=== PATIENT | female | born 2000 | race Caucasian/White ===

== ENCOUNTER 2024-03-27 08:51 | Emergency (ER) | payer BC, SELFPAY ==
[2024-03-27 09:04] VITALS: BP 122/72; PULSE 70; RESP 20; TEMP 37.2; O2SAT 99
--- NOTE | 2024-03-27 09:24 | ED.HA ---
HPI - Headache General Chief Complaint: Wound/Laceration Stated Complaint: HEAD INJURY/EYEBROW LACERATION Time Seen by Provider: 03/27/24 09:07 Source: patient and RN notes reviewed Mode of arrival: ambulatory Limitations: no limitations History of Present Illness HPI Narrative: Patient presents today complaining laceration to the left lateral eyebrow after she was elbowed in the head yesterday around noon while cheerleading. Denies loss of consciousness. Skin glue was applied to this area immediately. Following the injury patient developed a generalized headache with some photophobia today. Currently rates her pain 5/10 and has taken some Tylenol without relief. Denies neck pain, nausea or vomiting Related Data Home Medications Medication Instructions Recorded Confirmed No Home Medications 03/27/24 03/27/24 Allergies Allergy/AdvReac Type Severity Reaction Status Date / Time No Known Allergies Allergy Verified 03/27/24 09:24 Review of Systems Review of Systems: CONSTITUTIONAL: Denies body aches, fever, chills, or sweats. EYES: Denies visual changes, redness, or discharge. ENT: Denies rhinorrhea, congestion, sore throat, or otalgia.+ photophobia CARDIOVASCULAR: Denies chest pain, palpitations, or edema. RESPIRATORY: Denies cough or dyspnea. GASTROINTESTINAL: Denies abdominal pain, nausea, vomiting, or diarrhea. GENITOURINARY: Denies dysuria or hematuria. SKIN: Denies rash, itching. + eyebrow laceration MUSCULOSKELETAL: Denies back pain, joint pain, or myalgia. NEUROLOGIC: Denies numbness, tingling, or weakness.+ headache PSYCH: Denies depression or anxiety. PMFSH Comments At time of signature, I have reviewed and agree with nursing past medical, surgical, social and family history unless otherwise noted. Please see nursing chart for further information. There is no relevant family history pertinent to the presenting complaint Exam Narrative: GENERAL: Well-appearing, well-nourished, and in no acute distress. HEAD: Normocephalic, atraumatic. EYES: EOMI. PERRL. No nystagmus. No redness or drainage. Conjunctivae normal. ENT: Mucous membranes pink and moist. NECK: Normal AROM. Supple. No lymphadenopathy. Neck is nontender. No pain with range of motion CHEST: No respiratory distress. EXTREMITIES: Normal range of motion. No edema. Hand worm packer equal and strong. Dorsiflexion and plantar flexion equal and strong against resistance. SKIN: Warm, dry, no rash. Capillary refill normal. Normal skin turgor. NEURO: No focal deficits. Alert and oriented x3. Gait steady. PSYCH: Normal affect. No signs of depression or anxiety. Course Course Level of Care: Express Care Visit Vital Signs Vital signs: Vital Signs Temperature 98.9 F 03/27/24 09:04 Pulse Rate 70 03/27/24 09:04 Respiratory Rate 20 03/27/24 09:04 Blood Pressure 122/72 03/27/24 09:04 Pulse Oximetry 99 03/27/24 09:04 Oxygen Delivery Room Air 03/27/24 09:04 Temperature 98.9 F 03/27/24 09:04 Pulse Rate 70 03/27/24 09:04 Respiratory Rate 20 03/27/24 09:04 Blood Pressure 122/72 03/27/24 09:04 Pulse Oximetry 99 03/27/24 09:04 Oxygen Delivery Room Air 03/27/24 09:04 Reviewed MDM - Headache MDM Narrative Medical decision making narrative: Patient's laceration was repaired with skin glue. No need to revise this repair at this time. No signs of infection. Patient is having some mild concussion symptoms. Discussed rest and care going forward. Differential Diagnosis Differential diagnosis: Likely tension headache, postconcussion syndrome and other (Eyebrow laceration) Critical Care Time Critical Care Time Critical Care Time: No Discharge Plan Discharge Clinical Impression: Post-concussion syndrome Laceration of eyebrow, left Qualifiers: Encounter type: sequela Qualified Code(s): S01.112S - Laceration without foreign body of left eyelid and periocular area, sequela Patient Disposi
== END 2024-03-27 09:32 | disposition home or self-care (01) ==
PROVIDERS: Emergency Provider Nurse Practitioner
DX: F07.81 Postconcussional syndrome (principal); S01.112A Laceration without foreign body of left eyelid and periocular area, initial encounter; W50.0XXA Accidental hit or strike by another person, initial encounter; Y93.45 Activity, cheerleading
CPT/HCPCS: 99213; G0463

== ENCOUNTER 2024-04-12 12:02 | Emergency (ER) | payer BC, SELFPAY ==
--- NOTE | 2024-04-12 12:06 | ED.GENADULT ---
HPI - General Adult General Chief complaint: Upper Respiratory Infection Stated complaint: sore throat Time Seen by Provider: 04/12/24 12:06 Source: patient Mode of arrival: ambulatory Limitations: no limitations History of Present Illness HPI narrative: Old female patient presents to the [facility] with complaints of sore throat that started yesterday. Patient states she is very prone to tonsillitis and strep. Patient states she did have some chills and she noticed today that she had some white spots on the back of her tonsils. Related Data Home Medications Medication Instructions Recorded Confirmed No Home Medications 03/27/24 04/12/24 Allergies Allergy/AdvReac Type Severity Reaction Status Date / Time No Known Allergies Allergy Verified 04/12/24 12:09 Review of Systems Review of Systems: CONSTITUTIONAL: Denies fever, chills, or sweats. EYES: Denies visual changes, redness, or discharge. ENT: Denies rhinorrhea, congestion, Positive sore throat, denies otalgia. CARDIOVASCULAR: Denies chest pain, palpitations, or edema. RESPIRATORY: Denies cough or dyspnea. GASTROINTESTINAL: Denies abdominal pain, nausea, vomiting, or diarrhea. GENITOURINARY: Denies dysuria or hematuria. SKIN: Denies rash or itching. MUSCULOSKELETAL: Denies back pain, joint pain, or myalgia. NEUROLOGIC: Denies headache, numbness, or weakness. PSYCHIATRIC: Denies anxiety or depression. [facility] Past Medical History Medical History (Updated 04/12/24 @ 12:25 by KATLIN Carroll) Strep pharyngitis Tonsillitis Comments At the time of my signature I agree with nursing past medical history, surgical, social, and family history. There is no relevant family history pertinent to the presenting complaint. Exam Narrative: GENERAL: Well-appearing, well-nourished, and in no acute distress. HEAD: Normocephalic, atraumatic. EYES: PERRLA and EOMI. ENT: Nares clear, no rhinorrhea or epistaxis. Mucous membranes moist. bilateral TMs are clear no erythema or foreign bodies the canal. Posterior pharynx with erythema and 1+ tonsillar enlargement with white exudates noted. NECK: Supple. No lymphadenopathy CHEST: Clear to auscultation. No respiratory distress. HEART: Regular rate and rhythm. No murmur heard. Normal peripheral pulses. ABDOMEN: Soft, nontender, nondistended, normal active bowel sounds. EXTREMITIES: Normal range of motion. No edema. SKIN: Warm, dry, no rash. NEURO: No focal deficits. Alert and oriented x3. Course Course Level of Care: Express Care Visit Vital Signs Vital signs: Vital Signs Temperature 37.1 C 04/12/24 12:16 Pulse Rate 95 04/12/24 12:16 Respiratory Rate 16 04/12/24 12:16 Blood Pressure 150/105 H 04/12/24 12:16 Pulse Oximetry 98 04/12/24 12:16 Temperature 37.1 C 04/12/24 12:16 Pulse Rate 95 04/12/24 12:16 Respiratory Rate 16 04/12/24 12:16 Blood Pressure 150/105 H 04/12/24 12:16 Pulse Oximetry 98 04/12/24 12:16 Vital signs reviewed. Medical Decision Making MDM Narrative Medical decision making narrative: Plan of care for patient is to swab her today for strep I will reassess her once this has resulted. Differential Diagnosis Differential Diagnosis: Differential diagnosis: Viral pharyngitis, pharyngitis, group A strep, infectious mononucleosis, gonococcal pharyngitis, exudative pharyngitis, oral candidiasis. Chronic allergies, postnasal drip, GERD, abscess formation, but glottitis, retropharyngeal abscess formation, or airway obstruction. Vital Signs Vital Signs: Vital Signs Temperature 37.1 C 04/12/24 12:16 Pulse Rate 95 04/12/24 12:16 Respiratory Rate 16 04/12/24 12:16 Blood Pressure 150/105 H 04/12/24 12:16 Pulse Oximetry 98 04/12/24 12:16 Temperature 37.1 C 04/12/24 12:16 Pulse Rate 95 04/12/24 12:16 Respiratory Rate 16 04/12/24 12:16 Blood Pressure 150/105 H 04/12/24 12:16 Pulse Oximetry 98 04/12/24 12:16
[2024-04-12 12:16] VITALS: BP 150/105; PULSE 95; RESP 16; TEMP 37.1; O2SAT 98
[2024-04-12 12:24] LABS: EDSTREPNEGPOS1 Negative
== END 2024-04-12 12:40 | disposition home or self-care (01) ==
PROVIDERS: Emergency Provider Nurse Practitioner Family
DX: J03.90 Acute tonsillitis, unspecified (principal)
CPT/HCPCS: 87081; 87880; 99213; G0463

== ENCOUNTER 2024-04-13 10:08 | Emergency (ER) | payer BC, SELFPAY ==
--- NOTE | ~2024-04-13 | CT_ITS ---
CT scan of the Neck Technique: 2.5 mm axial scans were obtained through the neck after intravenous administration of 75 c c Omnipaque 350. Coronal and sagittal reconstructions of the neck were obtained. Dose reduction techn ique was used on this scan by utilizing automated exposure control and iterative reconstruction techn ique. The dose-length product (DLP) was 517.60 mGy-cm. Clinical History: Dysphagia, tonsillar enlargement Findings: There is bilateral stable 2 cervical lymphadenopathy. No other mass lesion evident. Parapharyngeal sp aces appear normal bilaterally. There is enlargement and heterogeneous appearance of bilateral palati ne tonsils, compatible tonsillitis/phlegmonous change. No definite discrete abscess evident. The paro tid and submandibular glands appear normal. The pharyngeal mucosal spaces appear normal. No soft tissue masses are seen in the neck. The thyroid gland appears normal. Images of the lung apices reveal no abnormalities. Impression: Bilateral palatine tonsillitis. No definite discrete abscess seen. Bilateral cervical lymphadenopathy, most likely reactive. Reviewed, dictated and finalized at [facility]. Impression: Bilateral palatine tonsillitis. No definite discrete abscess seen. Bilateral cervical lymphadenopathy, most likely reactive.
[2024-04-13 10:17] VITALS: BP 145/92; PULSE 106; RESP 16; TEMP 36.7; O2SAT 100
[2024-04-13 11:40] LABS: Strep Group A RT-PCR NOT DETECTED (Negative)
[2024-04-13] MEDS: ACETAMINOPHEN 500 MG TABLET 1000 MG PO (11:43)
[2024-04-13] MEDS: dexAMETHasone SOD PHOS INJ 10 MG/ML 1 ML VIAL IV PUSH (11:43)
[2024-04-13] MEDS: ONDANSETRON INJ 4 MG/2 ML VIAL IV PUSH (11:43)
[2024-04-13] MEDS: LIDOCAINE HCL 2% VISC SOLN 15 ML UDC PO (11:44)
[2024-04-13 11:46] LABS: BEDSIDEPREGUCG Negative
--- NOTE | 2024-04-13 11:48 | ED.GENADULT ---
HPI - General Adult General Chief complaint: Unspecified <SHASTA Meza Last Filed: 04/13/24 12:15> Stated complaint: tonsil swelling <SHASTA Meza Last Filed: 04/13/24 12:15> Time Seen by Provider: 04/13/24 11:01 <Shari Mccoy PA-C - Last Filed: 04/13/24 12:15> Source: patient <SHASTA Meza Last Filed: 04/13/24 12:15> Mode of arrival: ambulatory <SHASTA Meza Last Filed: 04/13/24 12:15> Limitations: no limitations <SHASTA Meza Last Filed: 04/13/24 12:15> History of Present Illness HPI narrative: Patient is a 23-year-old female who presents the ED with report of a sore throat. Patient reports she 1st developed a sore throat on Saturday. States she was seen at an urgent care yesterday, tested negative for strep throat, started on amoxicillin for tonsillitis, but has not picked this up from the pharmacy yet. She reports this morning she woke up with a worsening sore throat, difficulty swallowing. Also reports nausea, vomiting, fevers at home. Took Tylenol last night. Denies difficulty breathing. Denies cough or cold symptoms. <SHASTA Meza Last Filed: 04/13/24 12:15> Related Data Allergies/adverse reactions: Allergies Allergy/AdvReac Type Severity Reaction Status Date / Time No Known Allergies Allergy Verified 04/13/24 11:04 <SHASTA Meza Last Filed: 04/13/24 12:15> Review of Systems Review of Systems: All systems reviewed & are unremarkable except as noted in HPI. <SHASTA Meza Last Filed: 04/13/24 12:15> All systems reviewed & are unremarkable except as noted in HPI and below <SHASTA Meza Last Filed: 04/13/24 12:15> [facility] Past Medical History Medical History: Medical History Strep pharyngitis Tonsillitis <Shari Mccoy PA-C - Last Filed: 04/13/24 12:15> Social History Social History: Social History (Updated 04/13/24 @ 15:15 by Ivon Piper PA-C) Substance use: never <Shari Mccoy PA-C - Last Filed: 04/13/24 12:15> Exam Narrative: GENERAL: Well appearing, morbidly obese with BMI of 42.4, non-toxic, in no acute distress. HEAD: Normocephalic, atraumatic. ENT: Bilateral tonsil hypertrophy with diffuse exudates, R> L. Some protrusion of R tonsillar bed. No appreciable uvular deviation. No stridor or distress. Maintaining secretions. RESPIRATORY: Airway patent, respirations nonlabored. Clear to auscultation bilaterally, no rales, rhonchi, wheezing. CARDIOVASCULAR: Borderline tachycardic with regular rhythm. MUSCULOSKELETAL: Moves all extremities. No gross deformities. SKIN: Warm, dry, normal color. NEURO: A&O X3. Speech clear. PSYCHIATRIC: Appropriate mood and affect. Normal interaction. <Shari Mccoy PA-C - Last Filed: 04/13/24 12:15> Course Course Emergency Course: Patient updated on her workup. Agrees with plan of care <Ivon Piper PA-C - Last Filed: 04/13/24 15:16> Vital Signs Vital signs: Vital Signs Temperature 98.1 F 04/13/24 10:17 Pulse Rate 106 H 04/13/24 10:17 Respiratory Rate 16 04/13/24 10:17 Blood Pressure 145/92 H 04/13/24 10:17 Pulse Oximetry 100 04/13/24 10:17 Oxygen Delivery Room Air 04/13/24 10:17 Temperature 98.1 F 04/13/24 10:17 Pulse Rate 106 H 04/13/24 10:17 Respiratory Rate 16 04/13/24 10:17 Blood Pressure 145/92 H 04/13/24 10:17 Pulse Oximetry 100 04/13/24 10:17 Oxygen Delivery Room Air 04/13/24 10:17 <Shari Mccoy PA-C - Last Filed: 04/13/24 12:15> Vital Signs Temperature 98.1 F 04/13/24 10:17 Pulse Rate 106 H 04/13/24 10:17 Respiratory Rate 16 04/13/24 10:17 Blood Pressure 145/92 H 04/13/24 10:17 Pulse Oximetry 100 04/13/24 10:17 Oxygen Delivery Room Air 04/13/24 10
[2024-04-13 11:52] LABS: Basophils Absolute Auto 0.1 K/mm3 (0.0-0.1); Basophils Percent Auto 0.3 % (0.2-1.2); Eosinophils Absolute Auto 0.1 K/mm3 (0-0.3); Eosinophils Percent Auto 0.3 % (0-4.4); Hematocrit 42.4 % (37.0-47.0); Immature Granulocyte Absolute 0.13 K/mm3 (0.00-0.031); Immature Granulocyte Percent A 0.6 % (0-0.5); Lymphocytes Absolute Auto 0.91 K/mm3 (0.9-3.2); Lymphocytes Percent Auto 4.4 % (18.3-44.2); Mean Corpuscular Hemoglobin 30.3 pg (26-34); Mean Corpuscular Volume 91.8 fl (80-100); Mean Platelet Volume 10.3 fl (7.4-10.4); Monocytes Absolute Auto 1.1 K/mm3 (0.1-0.6); Monocytes Percent Auto 5.1 % (2.6-8.5); Neutrophils Absolute Auto 18.4 K/mm3 (1.3-6.7); Neutrophils Percent Auto 89.3 % (45.5-73.1); Platelet Count Result 295 k/mm3 (150-375); Red Blood Count 4.62 M/mm3 (4.2-5.4); Red Cell Distribution Width 13.6 % (11.5-14.5); White Blood Count 20.7 K/mm3 (4.5-10.0)
[2024-04-13 11:54] LABS: Estimated CRCL calculation 110 ml/min; Estimated Glomerular Filt Rate > 60
[2024-04-13] MEDS: AMPICILLIN SULB 3 GM/NS 100 ML 3 GM/100 ML VIAL IVPB (12:00)
[2024-04-13 12:13] LABS: Monoscreen Negative (Negative); Negative Monotest Control Negative (Negative); Positive Monotest Control Positive (Positive)
[2024-04-13 12:24] LABS: Add Urine Microscopic? YES; Appearance Urine Cloudy (Clear); Bacteria Urine 4+ /hpf; Bilirubin Urine 1+ (Negative); Blood Urine Trace (Negative); Color Urine Dark Yellow (Yellow); Glucose Urine UA Negative (Negative); Ketones Urine Trace mg/dL (Negative); Leukocyte Esterase Ur Trace LEU/UL (Negative); Need Manual Microscopic Reviewed; Nitrate Urine Negative (Negative); Protein Urine 1+ mg/dL (Negative); Specific Grav Ur 1.039 (1.001-1.035); Squamous Epithelial Cell Urine Moderate /hpf (Few); WBC Urine 21-50 /hpf (0-3); pH Urine 5.5 (5.0-9.0)
[2024-04-13 14:02] LABS: Anion Gap 11 mmol/L (4-12); Blood Urea Nitrogen 7 mg/dL (7-17); Carbon Dioxide 24 mmol/L (22-30); Chloride 100 mmol/L (98-107); Estimated CRCL calculation 125 ml/min; Estimated Glomerular Filt Rate > 60; Glucose 118 mg/dL (65-110); Potassium 3.6 mmol/L (3.4-5.0); Sodium 135 mmol/L (137-145)
[2024-04-13 15:21] VITALS: BP 140/82; PULSE 98; RESP 16; TEMP 36.8; O2SAT 98
== END 2024-04-13 15:22 | disposition home or self-care (01) ==
PROVIDERS: Emergency Provider Physician Assistant
DX: J03.90 Acute tonsillitis, unspecified (principal); R82.998 Other abnormal findings in urine
CPT/HCPCS: 36415; 70491; 80048; 81001; 81025; 85025; 86308; 87086; 87088; 87651; 96365; 96375; 99284; A9270; J0295; J1100; J2405; Q9967